=== PATIENT | male | born 1995 | race Caucasian/White ===

== ENCOUNTER 2017-12-29 17:29 | Emergency (ER) | payer OTHER, BC ==
[~2017-12-29] VITALS: Ht 182.9 cm; Wt 69.4 kg
[2017-12-29] MEDS ORDERED: NAPROSYN500 MG PO (19:30)
[2017-12-29] MEDS ORDERED: FLEXERIL10 MG PO (19:30)
[2017-12-29 19:38] VITALS: BP 121/73
== END 2017-12-29 19:38 | disposition home or self-care (01) ==
LOC: EME 17:29
DX: S39.012A Strain of muscle, fascia and tendon of lower back, initial encounter (principal); V49.40XA Driver injured in collision with unspecified motor vehicles in traffic accident, initial encounter; Y92.410 Unspecified street and highway as the place of occurrence of the external cause
CPT/HCPCS: 72100; 99281; 99284